=== PATIENT | female | born 1990 | race American Indian/Alaskan Native ===

== ENCOUNTER 2021-07-12 14:46 | Emergency (ER) | payer MEDICAID ==
[~2021-07-12] VITALS: Ht 160 cm; Wt 115.9 kg
[2021-07-12] MEDS ORDERED: dexamethasone sod phosphate 10mg/ml inj PO STA (16:25)
[2021-07-12 16:30] VITALS: BP 137/102
== END 2021-07-12 18:08 | disposition home or self-care (01) ==
LOC: ER 14:47
DX: L29.9 Pruritus, unspecified (principal); T50.Z95A Adverse effect of other vaccines and biological substances, initial encounter; Z88.8 Allergy status to other drugs, medicaments and biological substances; Y92.89 Other specified places as the place of occurrence of the external cause
CPT/HCPCS: 99283; J1100